=== PATIENT | female | born 1945 | race Caucasian/White ===

== ENCOUNTER 2017-06-28 09:50 | Emergency (ER) | payer OTHER ==
[~2017-06-28] VITALS: Ht 157.5 cm; Wt 65.8 kg
[2017-06-28 09:53] VITALS: BP 176/93
--- NOTE | 2017-06-28 10:29 | ED UPPER/LOWER EXTREMITY COMPL ---
History of Present Illness General Chief Complaint: Low Back Pain/Injury Stated Complaint: LBP Source: patient Exam Limitations: no limitations Allergies Coded Allergies: NO KNOWN ALLERGIES (09/06/12) Triage Note: 72 YO FEMALE TO TRIAGE C/O LOW BACK PAIN S/P STAINING A DECK A COUPLE DAYS AGO. STATES HER R LEG FEELS NUMB TODAY. STATES TOOK ALEVE WITHOUT RELIEF. Triage Nurses Notes Reviewed? yes Onset: Gradual Duration: day(s): Timing: recent history Severity: moderate Pain/Injury Location: Right: Leg. Method of Injury: unknown HPI: 72-year-old female presents emergency department complaining of right lower leg pain x 2 days. The patient states that on Thursday she was painting her deck and developed right-sided low back pain. She saw a chiropractor and he did leg maneuvers, no spinal adjustments. The patient states that she began experiencing right thigh pain and right calf pain after seeing the chiropractor however her back pain has resolved. Her chiropractor told her to take Aleve for pain, she is unsure if this is helped although has not noticed much difference. She also states that her right leg feels numb compared to her left leg. She denies cough, fevers, chills, swelling, skin changes, fall, trauma. (ANASTACIO DISLA,BHUPINDER ZURITA) Vital Signs & Intake/Output Vital Signs & Intake/Output Vital Signs Date Time Temp Pulse Resp B/P B/P Pulse O2 O2 Flow FiO2 Mean Ox Delivery Rate 06/28 0953 98.4 97 18 176/93 98 Room Air Reconcile Medications Cyclobenzaprine HCl 10 MG TABLET 1 TAB PO QPM PRN muscle spasm Meloxicam (Mobic) 15 MG TABLET 1 TAB PO DAILY PRN pain (JOCELYN CUETO,ES) Past History Travel History Traveled to [place] past 21 day No Medical History Any Pertinent Medical History? 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 No (ANASTACIO PABHUPINDER Faustin) Review of Systems Review of Systems Constitutional: Reports: no symptoms. EENTM: Reports: no symptoms. Respiratory: Reports: no symptoms. Cardiovascular: Reports: no symptoms. Gastrointestinal/Abdominal: Reports: no symptoms. Genitourinary: Reports: no symptoms. Musculoskeletal: Reports: see HPI. Skin: Reports: no symptoms. Neurological/Psychological: Reports: see HPI. Hematologic/Endocrine: Reports: no symptoms. Immunological: Reports: no symptoms. All Other Systems: Reviewed and Negative (BHUPINDER CHAVES PA-C) Physical Exam Physical Exam General Appearance: well developed/nourished, no apparent distress, alert, awake Head: atraumatic, normal appearance Eyes: Bilateral: normal appearance. Ears, Nose, Throat: hearing grossly normal Neck: normal inspection, supple, full range of motion Peripheral Pulses: 2+ dorsalis pedis (R), 2+ dorsalis pedis (L) Back: normal inspection, normal range of motion, no vertebral tenderness, no paraspinal muscle tenderness Leg Right: normal range of motion, normal inspection, anterior lower leg tenderness to palpation, no swelling or edema, no skin changes Lower Extremity Reflexes: 2+: ankle (R), ankle (L). Neurologic/Tendon: patient reports deminished sensation on right lower extremity compared to left Skin: intact, normal color, warm/dry (BHUPINDER CHAVES PA-C) Progress Differential Diagnosis: arterial insufficiency, cellulitis, contusion, dislocation, DVT, fracture, sprain, tendon injury, muscle strain Plan of Care: The patient was discussed with Dr. Stanford. She has no unilateral leg swelling, no skin changes, fevers, warmth indicating cellulitis. Her tenderness is mostly anterior and distal, suspicion for DVT is low based on physical exam and lack of risk factors other than her age. The patient likely has musculoskeletal pain from her recent activity. Patient was given a course of muscle relaxer and meloxicam for her likely muscular pain. She will follow-up with her primary care doctor as needed. She will return with worsening symptoms or concerns. Patient is in no acute distress, she is well appearing, she is able to ambulate leaving the emergency department. (BHUPINDER CHAVES PA-C) Departure Departure Disposition: HOME OR SELF CARE Condition: Stable Clinical Impression Primary Impression: Muscle strain Referrals: RHYS BLANCA MD (PCP/Family) Additional Instructions: Take Flexeril as prescribed as needed at nighttime. This medication may cause drowsiness, do not drive while taking this medication. Take meloxicam as needed as prescribed for muscle pain. Apply ice to affected area intermittently. Rest , no increase in physical activity. Follow-up with your primary care doctor, call them to inform them you were seen and evaluated today. Return with any worsening symptoms or concerns. Please note that there might be incidental findings in your evaluation that are unrelated to the current emergency department visit. Please notify your primary care doctor about this emergency department visit in order to obtain and review all of the testing performed so that these incidental findings can be monitored as needed. If you're unable to follow up as outlined in the discharge instructions please return to the emergency department. Thank you for choosing the [facility] Emergency Department for your care. It was a pleasure to serve you today. Departure Forms: Customer Survey General Discharge Information Prescriptions: Current Visit Scripts Cyclobenzaprine HCl 1 TAB PO QPM PRN muscle spasm #8 TAB Meloxicam (Mobic) 1 TAB PO DAILY PRN pain #12 TAB (ANASTACIO DISLA,BHUPINDER ZURITA) PA/ELECTRICITY TRADER Co-Sign Statement Statement: ED Attending supervision documentation- [X] I saw and evaluated the patient. I have also reviewed all the pertinent lab results and diagnostic results. I agree with the findings and the plan of care as documented in the PA's/ELECTRICITY TRADER's documentation. [X] I have reviewed the ED Record and agree with the PA's/ELECTRICITY TRADER's documentation. [] Additions or exceptions (if any) to the PAs/ELECTRICITY TRADER's note and plan are summarized below: [] (JOCELYN CUETO,ES)
[2017-06-28] MEDS ORDERED: CYCLOBENZAPRINE10 M1 PO (10:49)
[2017-06-28] MEDS ORDERED: MOBIC15 M1 PO (10:49)
== END 2017-06-28 11:48 ==
LOC: ERH 09:50
DX: S86.911A Strain of unspecified muscle(s) and tendon(s) at lower leg level, right leg, initial encounter (principal); X50.9XXA Other and unspecified overexertion or strenuous movements or postures, initial encounter; Y93.89 Activity, other specified; Y92.018 Other place in single-family (private) house as the place of occurrence of the external cause